=== PATIENT | male | born 1995 | race Two or more races ===

== ENCOUNTER 2017-10-18 22:46 | Emergency (ER) | payer MEDICAID, OTHER ==
[~2017-10-18] VITALS: Ht 165.1 cm; Wt 81.6 kg
--- NOTE | 2017-10-19 03:40 | NUR ---
PT BIBSELF AMBULATORY TO ER BED 4 PT STATES "ABD PAIN X2 WEEKS; I HAVE HERNIA. PAIN AGGRAVATED WHEN I LIFTED HEAVY OBJECTS; WAS AT [facility] MONDAY FOR SAME THING" PT AOX3 RR EVEN AND UNLABORED. NO SOB NOTED. NAD NOTED. NO NVD AT THIS TIME. PT GOWNED AND PLACED ON MONITOR WAITING FOR MD PEREA.
--- NOTE | 2017-10-19 03:51 | NUR ---
DR. LAMB AT BED SIDE FOR EVAL.
--- NOTE | 2017-10-19 03:59 | NUR ---
[facility] CALLED FOR ULTRASOUND
[2017-10-19] MEDS ORDERED: KETOROLAC TROMETHAMINE INJ 30 MG/ML VIAL IV ONE (04:00)
--- NOTE | 2017-10-19 04:06 | NUR ---
LAB AT BEDSIDE FOR BLOOD DRAW
--- NOTE | 2017-10-19 04:18 | NUR ---
URINE COLLECTED. SENT TO LAB
[2017-10-19] MEDS ORDERED: KETOROLAC TROMETHAMINE INJ 30 MG/ML VIAL ONE (04:19)
[2017-10-19 04:28] LABS: BASOPHILS % (AUTO) 0.4 % (0.0-2.0); EOSINOPHILS # (AUTO) 0.3 /CMM (0.0-0.7); EOSINOPHILS % (AUTO) 3.9 % (0.0-6.0); HEMATOCRIT 46 % (39-51); HEMOGLOBIN 15.8 g/dL (13.5-17.5); LYMPHOCYTES # (AUTO) 2.7 /CMM (0.8-4.8); LYMPHOCYTES % (AUTO) 34.4 % (20.0-44.0); MEAN CORPUSCULAR HEMOGLOBIN 31 PG (26.0-33.0); MEAN CORPUSCULAR HGB CONC 35 g/dl (31.0-36.0); MEAN CORPUSCULAR VOLUME 89 fL (80-96); MONOCYTES % (AUTO) 12.9 % (2.0-12.0); NEUTROPHILS # (AUTO) 3.8 /CMM (1.8-8.9); NEUTROPHILS % (AUTO) 48.4 % (43.0-81.0); PLATELET COUNT (AUTO) 231 /CMM (150-450); RDW COEFFICIENT OF VARIATION 13.4 (11.5-15.0); RED BLOOD CELL COUNT(AUTO) 5.12 MIL/uL (4.5-6.0); WHITE BLOOD COUNT (AUTO) 7.9 K/uL (4.3-11.0)
[2017-10-19 04:29] LABS: APPEARANCE,URINE CLEAR (CLEAR); BILIRUBIN,URINE NEGATIVE (NEGATIVE); BLOOD, URINE NEGATIVE Ery/uL (NEGATIVE); COLOR,URINE YELLOW (YELLOW); KETONES,URINE NEGATIVE (NEGATIVE); LEUKOCYTE ESTERASE ,URINE NEGATIVE (NEGATIVE); NITRITE, URINE NEGATIVE (NEGATIVE); PROTEIN,URINE NEGATIVE (NEGATIVE); UGLUCOSE NEGATIVE (NEGATIVE); UROBILINOGEN,URINE 0.2 EU/dL (0.2)
[2017-10-19 04:39] LABS: CALCIUM, SERUM 9.1 mg/dL (8.5-10.1); CREATININE 1.2 mg/dL (0.6-1.3); POTASSIUM 3.8 mmol/L (3.5-5.1)
--- NOTE | 2017-10-19 04:45 | NUR ---
ALESSANDRA AT BEDSIDE
[2017-10-19 04:46] LABS: BILIRUBIN,DIRECT 0.1 mg/dL (0.0-0.2); BILIRUBIN,TOTAL 0.3 mg/dL (0.2-1.0); TOTAL PROTEIN, SERUM 7.9 g/dL (6.4-8.2)
--- NOTE | 2017-10-19 05:13 | NUR ---
PT TO CT.
--- NOTE | 2017-10-19 05:23 | NUR ---
PT RETURNED FROM CT.
--- NOTE | 2017-10-19 05:58 | NUR ---
DR. LAMB SPOKE TO PT REGARDING RESULTS.
--- NOTE | 2017-10-19 06:09 | NUR ---
IV removed. Catheter intact and site benign. Pressure and 4x4 applied to site. No bleeding noted. Patient discharged to home in stable condition. Written and verbal after care instructions given. Patient verbalizes understanding of instruction. ambulatory with a steady gait.
[2017-10-19 06:10] VITALS: BP 112/68
== END 2017-10-19 06:11 | disposition home or self-care (01) ==
LOC: ER 22:48
DX: N50.812 Left testicular pain (principal); R10.84 Generalized abdominal pain
CPT/HCPCS: 36415; 74176; 76870; 80048; 80076; 81001; 83690; 85025; 99285; A4606; J1885; Z7610; 81000-TC